=== PATIENT | male | born 1990 | race Caucasian/White ===

== ENCOUNTER → 2016-05-10 | Outpatient (CLI) | payer BC ==
--- NOTE | 2016-05-11 05:45 | REP ---
Left knee series: Five views. History: Acute pain in the left knee. Findings: Five views of the left knee demonstrate normal bones, joints, and soft tissues. No evidence of fracture, subluxation or joint effusion. Impression: Negative left knee views. Signed by Brandon Espitia MD 05/11/2016 02:22 P
== END | disposition home or self-care (01) ==
LOC: M LRY 15:30
PROVIDERS: ATTEND Physician Assistant
DX: M25.562 Pain in left knee (principal)

== ENCOUNTER → 2019-06-27 | Outpatient (REF) | payer BC | LOC: M SFHCLERA 11:21 | PROVIDERS: ATTEND Physician Assistant | DX: J02.9 Acute pharyngitis, unspecified (principal) ==